=== PATIENT | male | born 1970 | race Caucasian/White ===

== ENCOUNTER → 2022-06-04 13:11 | Outpatient (BNVA) | payer SELFPAY | PROVIDERS: Visit Provider Nurse Practitioner Family | DX: R68.89 Other general symptoms and signs (principal) | CPT/HCPCS: 87400 ==

== ENCOUNTER → 2023-07-28 11:06 | Outpatient (BNVA) | payer OTHER, SELFPAY | PROVIDERS: PCP Nurse Practitioner Family; Visit Provider Podiatrist Foot & Ankle Surgery | DX: M72.2 Plantar fascial fibromatosis; M21.621 Bunionette of right foot; M77.8 Other enthesopathies, not elsewhere classified | CPT/HCPCS: 73630 ==

== ENCOUNTER 2024-08-03 08:30 | Outpatient (CLI) | payer OTHER, SELFPAY ==
--- NOTE | 2024-08-03 08:30 | US_ITS ---
WS: [id number] RIGHT UPPER QUADRANT ULTRASOUND HISTORY: abdominal pain COMPARISON: None available. Limited quality evaluation due to body habitus. Liver: 17.9 cm in length. Liver is measuring top normal size with advanced coarse echotexture through out. The entire liver is not visualized. There are changes of hepatic steatosis with focal fatty spar ing. Portal Vein: Normal hepatopetal flow with monophasic waveform. Gallbladder: Normally distended gallbladder with no stones or wall thickening. Small amount of sludge . CBD: 0.2 cm Pancreas: Not visualized. Right kidney: 10.0 cm in length. Normal size and echogenicity. No hydronephrosis or mass. Aorta and IVC: Unremarkable abdominal aorta and IVC. No ascites. US/US gall bladder [id number] IMPRESSION: 1. Limited quality evaluation RIGHT upper quadrant due to body habitus. 2. Small amount of gallbladder sludge with no cholelithiasis. 3. Hepatic steatosis with focal areas of sparing.
== END 2024-08-03 08:57 | disposition home or self-care (01) ==
PROVIDERS: PCP Nurse Practitioner Family; Visit Provider Surgery
DX: R10.13 Epigastric pain (principal); R93.3 Abnormal findings on diagnostic imaging of other parts of digestive tract; K76.0 Fatty (change of) liver, not elsewhere classified
CPT/HCPCS: 76705

== ENCOUNTER 2024-08-09 08:00 | Outpatient (CLI) | payer OTHER, SELFPAY ==
--- NOTE | 2024-08-09 08:00 | NM_ITS ---
WS: [id number] NUCLEAR MEDICINE HIDA SCAN CLINICAL INFORMATION: abdominal pain TECHNIQUE: Following intravenous administration of 8.1 mCi of technetium 99m mebrofenin, images of the abdomen were obtained over the course of 60 minutes. Next, gallbladder ejection fraction was det ermined by obtaining preprandial and one-hour postprandial images of the gallbladder following oral i ngestion of Ensure. COMPARISON: 08/03/24 FINDINGS: Normal hepatic uptake at 5 minutes. Normal hepatic excretion. Gallbladder is visualized by 20 minutes . No evidence of acute cholecystitis. Normal common bile duct and small bowel activity. Gallbladder ejection fraction 95% within normal limits. No evidence of chronic cholecystitis. NM/NM hepatobiliary w phar* [id number] IMPRESSION: 1. No evidence of acute or chronic cholecystitis. 2. Gallbladder ejection fraction 95% within normal limits
== END 2024-08-09 08:01 | disposition home or self-care (01) ==
LOC: RAD 08:01
PROVIDERS: PCP Nurse Practitioner Family; Visit Provider Surgery
DX: R10.13 Epigastric pain (principal)
CPT/HCPCS: 78227; A9537

== ENCOUNTER → 2024-10-05 06:52 | Outpatient (BNVA) | payer OTHER, SELFPAY | PROVIDERS: PCP Nurse Practitioner Family; Visit Provider Podiatrist Foot & Ankle Surgery | DX: M79.672 Pain in left foot (principal); S93.692A Other sprain of left foot, initial encounter; X58.XXXA Exposure to other specified factors, initial encounter | CPT/HCPCS: 73630 ==